=== PATIENT | male | born 1965 | race Caucasian/White ===

== ENCOUNTER 2020-05-11 20:57 | Emergency (ER) | payer OTHER ==
--- OUTSIDE RECORDS SUMMARY | 2020-05-11 21:00 | XMS REPORT | Continuity of Care Document ---
:1965 Author Organization [facility] Address [address] [place] [address] Dr. Monzon [address] [place] [id number] Care Team Providers Name Role Phone SIFF Attending Clinician Unavailable CARLOS Attending Clinician Unavailable SUZANNA Attending Clinician Unavailable Problems This patient has no known problems. Allergies, Adverse Reactions, Alerts This patient has no known allergies or adverse reactions. Medications This patient has no known medications. Procedures This patient has no known procedures. Encounters Start End Encounter Admission Attending Care Care Encounter Source Date/Time Date/Time Type Type Clinicians Facility Department ID 2020-03-10 2020-03-10 Outpatient SIFF, QUYEN [facility] [id number] [place] 00:00:00 00:00:[address] 2020-03-06 2020-03-06 Outpatient SIFF, [facility] [id number] [place] 00:00:00 00:00:[address] 2020-03-04 2020-03-04 Outpatient SIFF, QUYEN [facility] [id number] [place] 00:00:00 00:00:[address] 2020-03-04 2020-03-04 Outpatient SIFF, QUYEN [facility] [id number] [place] 00:00:00 00:00:[address] 2020-02-26 2020-02-26 Outpatient CARLOS, [facility] [id number] [place] 00:00:00 00:00:00 MYRNA [address] 2020-02-22 2020-02-22 [facility] [id number] [place] 00:00:00 00:00:00 MYRNA [address] 2020-02-22 2020-02-22 [facility] [id number] [place] 00:00:00 00:00:00 MYRNA [address] 2020-02-19 2020-02-19 [facility] [id number] [place] 00:00:00 00:00:00 MYRNA [address] 2020-02-19 2020-02-19 Outpatient CARLOS, [facility] [id number] [place] 00:00:00 00:00:00 MYRNA [address] 2020-02-12 2020-02-12 Outpatient CARLOS, [facility] [id number] [place] 00:00:00 00:00:00 MYRNA [address] 2020-02-12 2020-02-12 Outpatient CARLOS, [facility] [id number] [place] 00:00:00 00:00:00 MYRNA [address] 2019-12-26 2019-12-26 Outpatient SUZANNA, [facility] [id number] [place] 00:00:00 00:00:00 ASHLEY [address] 2019-06-14 2019-06-14 Outpatient SUZANNA, [facility] [id number] [place] 00:00:00 00:00:00 ASHLEY [address] Results This patient has no known results.
[2020-05-11] MEDS ORDERED: ACETAMINOPHEN 500 MG TAB ONE (21:57)
[2020-05-11 23:11] LABS: SARS-COV-2 RT PCR POSITIVE (NEGATIVE)
--- NOTE | 2020-05-11 23:23 | ER ---
Nurse's Notes [facility] Name: Brian Fitzpatrick Age: 54 yrs Sex: Male : 1965 Arrival Date: 05/11/2020 Time: 21:20 Bed 13 Private MD: Diagnosis: Coronavirus infection, unspecified Presentation: 05/11 21:23 Chief complaint: Patient states: had bronchitis last week , not getting better,. is iw having wheezing, chest tightness, fever , as not been tested for COVID , has hx of bronchitis in past , has been taking z-pack and medrol pack. Coronavirus screen: chills, congestion, cough unrelated to allergies, fever. Ebola Screen: Patient negative for fever greater than or equal to 101.5 degrees Fahrenheit, and additional compatible Ebola Virus Disease symptoms Patient denies exposure to infectious person. Patient denies travel to an Ebola-affected area in the 21 days before illness onset. No symptoms or risks identified at this time. 21:23 Method Of Arrival: Ambulatory iw 21:27 Initial Sepsis Screen: Does the patient meet any 2 criteria? No. Patient's initial iw sepsis screen is negative. Does the patient have a suspected source of infection? No. Patient's initial sepsis screen is negative. Risk Assessment: Do you want to hurt yourself or someone else? Patient reports no desire to harm self or others. Onset of symptoms was May 05, 2020. 21:27 Acuity: PRIMO 3 iw Triage Assessment: 21:35 General: Appears in no apparent distress. comfortable, Behavior is calm, cooperative. mg2 Historical: - Allergies: 21:26 No Known Allergies; iw - Home Meds: 21:26 None [Active]; iw - PMHx: 21:26 None; iw - PSHx: 21:26 None; iw - Immunization history:: Flu vaccine is up to date. . - Social history:: Smoking status: Smoking status: Patient/guardian denies using tobacco, the patient reports quitting approximately 25 years ago. Screenin:35 Abuse screen: Denies threats or abuse. Denies injuries from another. Nutritional mg2 screening: No deficits noted. Tuberculosis screening: No symptoms or risk factors identified. Fall Risk None identified. Assessment: 21:35 General: Appears in no apparent distress. comfortable, Behavior is calm, cooperative. mg2 Pain: Denies pain. Neuro: Level of Consciousness is awake, alert, obeys commands, Oriented to person, place, time, situation. Cardiovascular: Capillary refill < 3 seconds Patient's skin is warm and dry. Respiratory: Reports shortness of breath cough that is Airway is patent Respiratory effort is even, unlabored, Respiratory pattern is regular, symmetrical. GI: No signs and/or symptoms were reported involving the gastrointestinal system. : No signs and/or symptoms were reported regarding the genitourinary system. EENT: No signs and/or symptoms were reported regarding the EENT system. Derm: Skin is intact, is healthy with good turgor, Skin is pink, warm \T\ dry. normal. Musculoskeletal: Circulation, motion, and sensation intact. Capillary refill < 3 seconds. Vital Signs: 21:23 BP 147 / 93; Pulse 117; Resp 18 S; Temp 102.4(O); Pulse Ox 99% on R/A; Weight 83.91 kg; iw Height 5 ft. 8 in. (172.72 cm); 22:46 Temp 99.9(O); mg2 23:00 BP 140 / 90; Pulse 95; Resp 18; Temp 99.8; Pulse Ox 100% on R/A; mg2 21:23 Body Mass Index 28.13 (83.91 kg, 172.72 cm) iw ED Course: 21:20 Patient arrived in ED. iw 21:27 Triage completed. iw 21:27 Arm band placed on. iw 21:29 Shelly Castillo [facility]NP[facility]C [facility]. kb 21:29 Kyle Marie MD is Attending Physician. kb 21:35 Patient has correct armband on for positive identification. mg2 21:35 No provider procedures requiring assistance completed. Patient did not have IV access mg2 during this emergency room visit. 21:37 Robert Troncoso, RN is Primary Nurse. mg2 05/12 01:06 Chest Pa And Lat (2 Views) XRAY In Process Unspecified. EDMS Administered Medications: 05/11 21:42 Drug: Tylenol 1000 mg Route: PO; mg2 Outcome: 23:23 Discharge ordered by . kb 23:32 Discharged to home ambulatory. mg2 23:32 Condition: stable 23:32 Discharge instructions given to patient, Instructed on discharge instructions, follow up and referral plans. medication usage, Demonstrated understanding of instructions, follow-up care, medications, Prescriptions given X 2. 23:32 Patient left the ED. mg2 Signatures: Dispatcher [employer] EDMS Shelly Castillo, SANTIAGO-C SANTIAGO-Grace Molina RN RN Robert Garcia RN RN mg2 Corrections: (The following items were deleted from the chart) 21:29 21:23 BP 147 / 93; Pulse 117bpm; Resp 18bpm; Spontaneous; Pulse Ox 99% RA; Temp 99.8F iw Temporal; 83.91 kg; Height 5 ft. 8 in.; BMI: 28.1; iw
--- NOTE | 2020-05-11 23:23 | EDPHYS ---
Physician Documentation [facility] Name: Brian Fitzpatrick Age: 54 yrs Sex: Male : 1965 Arrival Date: 05/11/2020 Time: 21:20 Bed 13 Private MD: ED Physician Kyle Marie HPI: 05/11 23:27 This 54 yrs old Male presents to ER via Ambulatory with complaints of Cough, kb Shortness Of Breath. 23:27 The patient or guardian reports cough, that is intermittent, described as mild, flu kb symptoms, low-grade fever, myalgias. Onset: The symptoms/episode began/occurred 1 week(s) ago. Severity of symptoms: At their worst the symptoms were moderate, in the emergency department the symptoms are unchanged. Modifying factors: The symptoms are alleviated by nothing, the symptoms are aggravated by nothing. Associated signs and symptoms: Pertinent positives: fever. The patient has experienced similar episodes in the past. The patient has not recently seen a physician. Pt reports cough, congestion, bodyaches, headaches, fatigue, fever up to 102, chills. States he gets bronchitis a couple of times a year, went to a clinic and was given steroids, zithromax and tessalon perles. Has one day left of the steroid, completed the zithromax and the perles don't help. Thinks he may have pneumonia now. Historical: - Allergies: 21:26 No Known Allergies; iw - Home Meds: 21:26 None [Active]; iw - PMHx: 21:26 None; iw - PSHx: 21:26 None; iw - Immunization history:: Flu vaccine is up to date. . - Social history:: Smoking status: Smoking status: Patient/guardian denies using tobacco, the patient reports quitting approximately 25 years ago. ROS: 23:26 Cardiovascular: Negative for chest pain, palpitations, and edema, Abdomen/GI: Negative kb for abdominal pain, nausea, vomiting, diarrhea, and constipation, Back: Negative for injury and pain, MS/Extremity: Negative for injury and deformity, Skin: Negative for injury, rash, and discoloration. 23:26 Constitutional: Positive for body aches, chills, fatigue, fever, malaise. 23:26 ENT: Positive for sinus congestion. 23:26 Respiratory: Positive for cough, Negative for dyspnea on exertion, hemoptysis, orthopnea, pleurisy, shortness of breath, sputum production, wheezing. 23:26 Neuro: Positive for headache. Exam: 23:26 Constitutional: This is a well developed, well nourished patient who is awake, alert, kb and in no acute distress. Head/Face: Normocephalic, atraumatic. Chest/axilla: Normal chest wall appearance and motion. Cardiovascular: Regular rate and rhythm with a normal S1 and S2. No gallops, murmurs, or rubs. No pulse deficits. Respiratory: Lungs have equal breath sounds bilaterally, clear to auscultation. No rales, rhonchi or wheezes noted. No increased work of breathing, no retractions or nasal flaring. Abdomen/GI: Soft, non-tender, with normal bowel sounds. No distension. No guarding or rebound. No evidence of tenderness throughout. Skin: Warm, dry with normal turgor. Normal color with no rashes, no lesions, and no evidence of cellulitis. MS/ Extremity: Pulses equal, no cyanosis. Neurovascular intact. Full, normal range of motion. Neuro: Awake and alert, GCS 15, oriented to person, place, time, and situation. Cranial nerves II-XII grossly intact. Moves all extremities. Sensory grossly intact. Cerebellar exam normal. Normal gait. Vital Signs: 21:23 BP 147 / 93; Pulse 117; Resp 18 S; Temp 102.4(O); Pulse Ox 99% on R/A; Weight 83.91 kg; iw Height 5 ft. 8 in. (172.72 cm); 22:46 Temp 99.9(O); mg2 23:00 BP 140 / 90; Pulse 95; Resp 18; Temp 99.8; Pulse Ox 100% on R/A; mg2 21:23 Body Mass Index 28.13 (83.91 kg, 172.72 cm) iw MDM: 21:30 Patient medically screened. kb 23:22 Data reviewed: vital signs, nurses notes. Data interpreted: Pulse oximetry: on room air kb is 99 %. Interpretation: normal. Counseling: I had a detailed discussion with the patient and/or guardian regarding: the historical points, exam findings, and any diagnostic results supporting the discharge/admit diagnosis, lab results, radiology results, the need for outpatient follow up, a family practitioner, to return to the emergency department if symptoms worsen or persist or if there are any questions or concerns that arise at home. 05/11 21:30 Order name: Flu 05/11 21:30 Order name: COVID-19 : Document "Date of Symptom Onset" if Symptomatic. 05/11 21:29 Order name: Chest Pa And Lat (2 Views) XRAY 05/11 22:20 Order name: Influenza Screen (A [facility] 05/11 22:20 Order name: CORONAVIRUS [facility] 05/11 23:11 Order name: COVID-19/FLU A+B; Complete Time: 23:11 EDMS Administered Medications: 21:42 Drug: Tylenol 1000 mg Route: PO; mg2 Disposition: 05/12 05:55 Co-signature as Attending Physician, Kyle Marie MD. [email or web address] Disposition: 05/11/20 23:23 Discharged to Home. Impression: Coronavirus infection, unspecified. - Condition is Stable. - Discharge Instructions: Viral Respiratory Infection, [place]-Wl-Ahip, COVID-19. - Prescriptions for Albuterol Sulfate 90 mcg/actuation - inhale 1-2 puff by INHALATION route every 4-6 hours; 1 Inhaler. Guaifenesin AC 10- 100 mg/5 mL Oral Liquid - take 10 milliliter by ORAL route every 4 hours As needed; 240 milliliter. - Medication Reconciliation Form, Thank You Letter, Antibiotic Education, Prescription Opioid Use form. - Follow up: Emergency Department; When: As needed; Reason: Worsening of condition. Follow up: Private Physician; When: 2 - 3 days; Reason: Recheck today's complaints, Continuance of care, Re-evaluation by your physician. Signatures: Dispatcher [employer] [facility] Shelly Castillo, SANTIAGO-Marylou TRIVEDIP-Grace Molina RN RN iw Robert Troncoso RN RN mg2 Kyle Marie MD MD [email or web address] Corrections: (The following items were deleted from the chart) 05/11 23:32 23:23 05/11/2020 23:23 Discharged to Home. Impression: Coronavirus infection, mg2 unspecified. Condition is Stable. Forms are Medication Reconciliation Form, Thank You Letter, Antibiotic Education, Prescription Opioid Use. Follow up: Emergency Department; When: As needed; Reason: Worsening of condition. Follow up: Private Physician; When: 2 - 3 days; Reason: Recheck today's complaints, Continuance of care, Re-evaluation by your physician. kb
[2020-05-12 01:09] VITALS: BP 147/93; O2SAT 99
[2020-05-12 01:10] VITALS: TEMP 99.9
--- NOTE | 2020-05-12 08:17 | RAD REPORT ---
EXAM DESCRIPTION: RAD - Chest Pa And Lat (2 Views) - 05/11/2020 10:01 pm CLINICAL HISTORY: Cough;Congestion COMPARISON: None TECHNIQUE: Frontal and lateral views of the chest were obtained. FINDINGS: The lungs are clear of a mass or consolidation. Heart size and vasculature within normal l imits. No significant degree of failure or volume overload seen. Interstitial pattern is mildly promi nent with the baseline for the patient unknown. Trachea is in the midline. Heart size is normal and central vasculature is within normal limits. No acute bony finding noted. No aortic abnormality. IMPRESSION: Baseline study showing mildly prominent interstitial pattern. This could be the patient' s baseline presentation. Interstitial edema and infiltrate are possible as well.
== END 2020-05-11 23:32 | disposition home or self-care (01) ==
LOC: ER 20:57
DX: U07.1 COVID-19 (principal)
CPT/HCPCS: 0240U; 71046; 99283